=== PATIENT | female | born 1960 | race Two or more races ===

== ENCOUNTER → 2016-09-17 | Outpatient (CLI) | payer MEDICARE ==
[~2016-09-17] MED LIST: ADVAIR INH; ALBUTEROL2.5 MG/31 INH; ALDACTONE25 MG PO; ASPIR-TRIN325 MG; ASPIR-TRIN325 MG PO; BENADRYL25 MG PO; BUMEX1 MG PO; CALCIUM CARBON600 MG PO; COREG25 MG PO; FISH OIL 1,4001 EACH PO; GLUCOPHAGE500 MG PO; HUMALOG100 UNIT/3 SUB-Q; HUMULIN N100 UNIT/2 SUB-Q; KLOR-CON M2020 MEQ PO; LASIX40 M1 PO; LIPITOR80 MG PO; NORVASC5 MG PO; SPIRIVA18 MCG INH; THERAGRAN-M1 TAB PO; TYLENOL325 MG PO; VITAMIN D1000 UNIT PO; ZAROXOLYN2.5 MG PO; ZESTRIL40 MG PO; ZOCOR10 MG PO
--- NOTE | ~2016-09-17 | PUL ---
PATIENT'S NAME: SUMAN HUFF [facility] AGE: 55 Y [address] ROOM: [place] [address] LOCATION: [facility] ADMIT DATE: 09/17/2016 Pulmonary DISCHARGE DATE: FAMILY PHYSICIAN: LESLY LEDBETTER MD ATTENDING PHYSICIAN: GERMAN SANTOYO NAME OF PROCEDURE: Six Minute Walk Test DATE OF PROCEDURE: September 17, 2016 TECH: NIYAH Zamarripa REASON FOR EXAM: Chronic respiratory failure RESULTS: The test was performed on room air. The patient walked for 850 feet at a pace of 1.6 miles/hour. She had three periods of rest. Her oxygen saturation remained at or above 93% during the test and after the test. Her perceived dyspnea was 8/10 on the Tahira scale. She had appropriate increases in her heart rate and blood pressure. PHYSICIAN INTERPRETATION: The patient has moderate limitation in her exercise capacity without significant desaturations or hypoxia on room air during exercise. MD FRANCESCO GARCIA/presley /[id number] dtt: 09/19/16 1406 YARELIS RADU F dtd: 09/19/16 1133
--- NOTE | ~2016-09-17 | PUL ---
PATIENT'S NAME: SUMAN HUFF [facility] AGE: 55 Y [address] ROOM: [place] [id number] LOCATION: [facility] ADMIT DATE: 09/17/2016 Pulmonary DISCHARGE DATE: FAMILY PHYSICIAN: LESLY LEDBETTER MD ATTENDING PHYSICIAN: GERMAN SANTOYO NAME OF PROCEDURE: Pulmonary Function Test DATE OF PROCEDURE: September 17, 2016 TECH: NIYAH Zamarripa REASON FOR EXAM: COPD RESULTS: 1. FVC was 2.61 liters which is 64% of predicted and low, FEV1 was 1.64 liters which is 51% of predicted and low, and FEV1/FVC was 63% and low. The flow volume curve revealed significant airflow limitation. After bronchodilator administration FVC decreased to 2.44 liters and FEV1 decreased to increased to 1.75 liters which is a 7% increase. FEV1/FVC was 72%. 2. DLCO was 17 with an adjusted DLCO of 16 which is 47% of predicted and low. 3. Total lung capacity was 4.8 liters which is 81% of predicted and low, and residual volume was 2.2 liters which is 101% of predicted and normal. 4. PH was 7.38, PCO2 was 53, with a PO2 of 59 while on room air. The base excess was 4.4. PHYSICIAN INTERPRETATION: The patient has mixed restrictive and obstructive moderately severe lung function impairment. There was no significant bronchodilator response. Her diffusion capacity is moderately low. She has evidence of mild respiratory acidosis with adequate metabolic compensation and no hypoxia at rest on room air. MD FRANCESCO GARCIA/presley /[id number] dtt: 09/19/16 1401 , GERMAN SANTOYO dtd: 09/19/16 1128
[2016-09-17 11:51] LABS: BICARBONATE 31.4 mmol/L (18.0-23.0); PCO2 53 mmHg (35-45); PO2 59 mmHg (80-90)
== END | disposition disaster alternative care site (69) ==
LOC: GRTH 10:41
PROVIDERS: Internal Medicine Critical Care Medicine
DX: J44.9 Chronic obstructive pulmonary disease, unspecified (principal); R91.1 Solitary pulmonary nodule

== ENCOUNTER → 2016-11-06 | Outpatient (CLI) | payer MEDICARE, OTHER | LOC: LGSMG 11:20 | DX: I71.2 Thoracic aortic aneurysm, without rupture (principal); I50.32 Chronic diastolic (congestive) heart failure; I10 Essential (primary) hypertension ==

== ENCOUNTER → 2016-12-09 | Outpatient (CLI) | payer MEDICARE, OTHER ==
--- NOTE | ~2016-12-09 | PUL ---
PATIENT'S NAME: SUMAN HUFF [facility] AGE: 56 Y [address] ROOM: [place] [address] LOCATION: [facility] ADMIT DATE: 12/09/2016 Pulmonary DISCHARGE DATE: FAMILY PHYSICIAN: LESLY LEDBETTER MD ATTENDING PHYSICIAN: GERMAN SANTOYO NAME OF PROCEDURE: Sleep Study PROCEDURE DATE: 12/09/16 TECH: SAMANTA Calixto TEST #: [facility]# [id number] TECHNICAL PARAMETERS: The patient was studied using International 10/20 measuring system. While the patient was studied, there was continuous monitoring of EEG (8 leads), EOG (2 leads), EKG (3 leads), submental EMG (3 leads), tibial (4 leads), respiratory inductive plethysmography (RIP) for thoracic and abdominal effort, oral and nasal airflow with a thermocouple and pressure transducer, and oximetry. The natural resource technician also performed visual and auditory observations noting things like body position, patient's status, breath sounds, artifact, snoring level and patient comments. Continuous sound was monitored using a 2-way speaker system and video monitoring was performed using an infrared camera. Review of the entire study was performed epoch by epoch utilizing a single epoch and multiple epoch capability sleep system. MEDICAL HISTORY: The patient is a 56-year-old massively obese woman with daytime sleepiness and snoring. SLEEP STAGE SUMMARY: The patient was studied for 540 minutes of which she slept 404 minutes. She fell asleep in 7.5 minutes and slept for 75% of the night. Sleep architecture revealed a decline in slow wave sleep. RESPIRATORY SUMMARY: Oxygen saturations ranged from 74-92 and were below 88% for 156 minutes. Prior to initiating CPAP there were 11 apneas and 139 hypopneas. CPAP was initiated and titrated to 14 cm with excellent control of the respiratory events. EKG SUMMARY: A tachycardic and irregular rhythm was noted during the study. LIMB MOVEMENT SUMMARY: No clinically relevant periodic limb movements were noted. SUMMARY: Severe obstructive sleep apnea responsive to CPAP at 14 cm. Possible cardiac dysrhythmia, correlation with further monitoring is PATIENT'S NAME: SUMAN HUFF [facility] AGE: 56 Y [address] ROOM: [place] [address] LOCATION: [facility] ADMIT DATE: 12/09/2016 Pulmonary DISCHARGE DATE: FAMILY PHYSICIAN: LESLY LEDBETTER MD ATTENDING PHYSICIAN: GERMAN SANTOYO suggested. PLAN: Patient will receive results from the ordering provider. MD FRANCHESCA OKEEFE/ /[id number] dtt: 12/18/16 0827 , Charbel Carrasquillo. dtd: 12/11/16 1503
== END | disposition disaster alternative care site (69) ==
LOC: GSLP 20:25
DX: G47.33 Obstructive sleep apnea (adult) (pediatric) (principal); R09.02 Hypoxemia

== ENCOUNTER → 2016-12-14 | Outpatient (CLI) | payer MEDICARE, OTHER ==
[2016-12-14 12:16] LABS: BASOPHIL % 0.4 %; EOSINOPHIL # 0.2 K/uL (0.0-0.5); EOSINOPHIL % 1.9 %; HEMATOCRIT 54.1 % (33.0-46.0); HEMOGLOBIN 18.1 g/dL (10.0-15.0); IMMATURE GRANULOCYTE % 0.3 %; LYMPHOCYTE # 2.3 K/uL (0.8-4.0); LYMPHOCYTE % 24.1 %; MCH 30.9 pg (27.0-34.0); MCHC 33.5 gm/dL (32.0-36.5); MCV 92.5 fl (83.0-98.0); MONOCYTE # 0.8 K/uL (0.0-1.0); MONOCYTE % 7.9 %; MPV 11.1 fl (9.4-12.4); NEUTROPHIL # (ANC) 6.2 K/uL (1.8-7.8); NEUTROPHIL % 65.4 %; NRBC % 0 /100WBC (0-0.00); PLATELET COUNT 218 K/uL (150-450); RBC 5.85 M/uL (3.50-5.50); RDW-CV 13.2 % (11.9-14.6); WBC 9.5 K/uL (4.0-11.0)
[2016-12-14 12:31] LABS: ALBUMIN 2.9 gm/dL (3.5-5.0); ANION GAP 13.6 (10.0-19.0); CALCIUM 7.7 mg/dL (8.5-10.5); CREATININE 1.2 mg/dL (0.5-1.1); POTASSIUM 3.6 mMol/L (3.7-5.1); TOTAL BILIRUBIN 0.5 mg/dL (0.0-1.5); TOTAL PROTEIN 8.3 g/dL (6.0-8.4)
== END | disposition disaster alternative care site (69) ==
LOC: LNHI 12:11
PROVIDERS: Internal Medicine Interventional Cardiology
DX: I10 Essential (primary) hypertension (principal); I50.32 Chronic diastolic (congestive) heart failure